=== PATIENT | female | born 1995 | race Caucasian/White ===

== ENCOUNTER 2018-12-27 12:10 | Emergency (ER) | payer OTHER ==
[2018-12-27] MEDS ORDERED: Diphtheria,Pertussis(Acell),Tetanus Vaccine 0.5 ML Syringe IM ONE (12:42)
[2018-12-27] MEDS ORDERED: Lidocaine 1% 10 ML MDV INJECT ONE (12:43)
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
[2018-12-27] MEDS ORDERED: FLU Vacc QS2019-20(6MOS+)/PF 60 MCG/0.5 ML SYRINGE IM ONE (13:00)
== END 2018-12-27 15:00 | disposition home or self-care (01) ==
LOC: JD.ED 12:10
DX: S81.021A Laceration with foreign body, right knee, initial encounter (principal); Z23 Encounter for immunization; W18.30XA Fall on same level, unspecified, initial encounter; Y93.01 Activity, walking, marching and hiking; Y92.89 Other specified places as the place of occurrence of the external cause
CPT/HCPCS: 12002; 90471; 90686; 90700; 99282; J2001; G0008

== ENCOUNTER 2019-03-15 13:06 | Emergency (ER) | payer OTHER ==
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
--- NOTE | 2019-03-15 14:26 | CT ---
Head CT Technique: Multiple axial sections through the brain were obtained. Intravenous contrast was not utilized. Comparison: No prior intracranial imaging is available. Findings: Ventricles along with basal cisterns and sulci over the convexities appear within normal limits for the patient's age. No abnormal parenchymal densities are seen. No evidence of intracranial hemorrhage. No midline shift or mass effect is seen. No acute calvarial abnormality is seen. No acute paranasal sinus findings are seen. Impression: 1. Nothing acute is appreciated on noncontrast head CT exam. Diagnostic code #1 This report was dictated in Mountain Standard Time
== END 2019-03-15 14:46 | disposition home or self-care (01) ==
LOC: JD.ED 13:06
DX: S06.0X9A Concussion with loss of consciousness of unspecified duration, initial encounter (principal); F32.9 Major depressive disorder, single episode, unspecified; E03.9 Hypothyroidism, unspecified; Z79.899 Other long term (current) drug therapy; X58.XXXA Exposure to other specified factors, initial encounter
CPT/HCPCS: 70450; 70450-26; 99282; 99284-25

== ENCOUNTER 2020-05-29 16:39 | Inpatient (IN) | payer BC ==
--- NOTE | 2020-05-29 18:19 | PCM.SN.2 ---
- Free Text/Narrative Note: 1810
--- NOTE | 2020-05-29 20:04 | PCM.SN.2 ---
- Free Text/Narrative Note: 1800 S: 24 y/o at 37 6/7 wks who presents for monitoring after mild range BP with normal repeat in clinic. Feeling well. O: VS: 105/87, 114/83, 134/82, 132/72, 127/89, 143/74, 136/90, 131/78, 130/80, 133/76, 135/77 GEN: NAD NST: Initially so much movement unable to establish baseline, eventua lly 125, moderate variability, + accelerations, no decelerations TOCO: Quiet Laboratory Tests 05/29/20 05/29/20 05/29/20 Range/Units 17:01 17:10 17:20 WBC 11.49 H (3.98-10.04) K/mm3 RBC 3.80 L (3.98-5.22) M/mm3 Hgb 11.4 (11.2-15.7) gm/dl Hct 33.9 L (34.1-44.9) % MCV 89.2 (79.4-94.8) fl MCH 30.0 (25.6-32.2) pg MCHC 33.6 (32.2-35.5) g/dl RDW Std Deviation 37.8 (36.4-46.3) fL Plt Count 339 (182-369) K/mm3 MPV 9.3 L (9.4-12.3) fl Neut % (Auto) 62.5 (34.0-71.1) % Lymph % (Auto) 26.9 (19.3-51.7) % Baker % (Auto) 6.3 (4.7-12.5) % Eos % (Auto) 3.7 (0.7-5.8) Baso % (Auto) 0.3 (0.1-1.2) % Neut # (Auto) 7.19 H (1.56-6.13) K/mm3 Lymph # (Auto) 3.09 (1.18-3.74) K/mm3 Baker # (Auto) 0.72 H (0.24-0.36) K/mm3 Eos # (Auto) 0.42 H (0.04-0.36) K/mm3 Baso # (Auto) 0.03 (0.01-0.08) K/mm3 Creatinine 0.5 L (0.55-1.02) mg/dL Est Cr Clr Drug Dosing 162.42 mL/min Estimated GFR (MDRD) > 60 (>60) mL/min AST 12 L (15-37) U/L ALT 14 (14-59) U/L Ur Random Creatinine < 13.0 L (30.0-125.0) mg/dL U Random Total Protein < 6.0 (0.0-11.8) mg/dL Protein/Creatinin Ratio TNP A/P: Labs WNL. Did have two mild range BP's, but rest WNL. Reviewed not technically 4 hours apart, but could consider staying for IOL although this might be overtreating finding. Reviewed risks/benefits. Ultimately patient declines IOL. Will return to clinic in 2 days for repeat BP check and appointment. Aware of signs which should prompt evaluation Erin Montes MD
[2020-05-29] MEDS ORDERED: Misoprostol 100 MCG Tab VAG PRN (20:19)
[2020-05-29] MEDS ORDERED: Ondansetron 4 MG/2 ML SDV IVPUSH PRN (20:19)
[2020-05-29] MEDS ORDERED: Nalbuphine 10 MG/1 ML Vial IVPUSH PRN (20:19)
[2020-05-29] MEDS ORDERED: Acetaminophen 325 MG Tab PO PRN (20:19)
[2020-05-29] MEDS ORDERED: Sodium Chloride 0.9% 10 ML Syringe FLUSH PRN (20:19)
--- NOTE | 2020-05-29 20:23 | PCM.LDHP ---
L&D History of Present Illness - General Date of Service: 05/29/20 Admit Problem/Dx: Patient Status Order with Admit Dx/Problem 05/29/20 17:05 Patient Status [ADT] Routine Admission Diagnosis/Problem Admission Diagnosis/Problem Elevated blood pressure Source of Information: Patient History Limitations: Reports: No Limitations - History of Present Illness Introduction:: Patient is a 24 y/o at 37 6/7 wks who was being seen in triage earlier today for mild range BP in clinic. Had made plan to discharge patient, but then had several additional mild range BP's. Was thus recommended to stay for IOL. Otherwise HPI as per simple note - Related Data Allergies/Adverse Reactions: Allergies Allergy/AdvReac Type Severity Reaction Status Date / Time antipyrine [From Auralgan] Allergy Other Verified 05/29/20 19:20 benzocaine [From Auralgan] Allergy Other Verified 05/29/20 19:20 cefdinir Allergy Stomach Verified 05/29/20 19:20 Upset docosanol [From Abreva] Allergy Other Verified 05/29/20 19:20 glycerin [From Auralgan] Allergy Other Verified 05/29/20 19:20 phenazopyridine Allergy Nausea Verified 05/29/20 19:20 [From Pyridium] Home Medications: Home Meds Acetaminophen [Tylenol Extra Strength] 1,000 mg PO Q4HR PRN 05/29/20 [History] Levothyroxine Sodium [Levothyroxine] 75 mcg PO DAILY 05/29/20 [History] Magnesium Oxide 400 mg PO DAILY 05/29/20 [History] Omeprazole Magnesium [Prilosec Otc] 20 mg PO DAILY 05/29/20 [History] No122/Iron/Folic Acid [ Multi Tablet] 1 each PO DAILY 05/29/20 [History] Past Medical History Psychiatric History: Reports: Depression Endocrine/Metabolic History: Reports: Hypothyroidism - Infectious Disease History Infectious Disease History: Reports: Chicken Pox - Past Surgical History HEENT Surgical History: Reports: Myringotomy w Tube(s), Oral Surgery, Tonsillectomy Social & Family History - Family History Family Medical History: No Pertinent Family History - Tobacco Use Tobacco Use Status *Q: Never Tobacco User - Caffeine Use Caffeine Use: Reports: Coffee - Alcohol Use Alcohol Use History: No - Recreational Drug Use Recreational Drug Use: No H&P Review of Systems - Review of Systems: Review Of Systems: See Below General: Reports: No Symptoms, Malaise Pulmonary: Reports: No Symptoms Cardiovascular: Reports: No Symptoms Gastrointestinal: Reports: No Symptoms Genitourinary: Reports: No Symptoms Musculoskeletal: Reports: No Symptoms Psychiatric: Reports: No Symptoms Neurological: Reports: No Symptoms L&D Exam - Exam Exam: See Below - Vital Signs Vital Signs: Last Vital Signs Temp 36.4 C 05/29/20 17:22 Pulse 95 05/29/20 17:22 Resp 18 05/29/20 17:22 BP 135/77 05/29/20 19:30 Pulse Ox 99 05/29/20 17:22 Weight: 110.223 kg - OB Specific Contraction Intensity: Irritability Movement: Active Heart Tones: Present Heart Tones per Min: 150 Heart Rate (FHR) Variability: Moderate (6-25 bmp) Presentation: Vertex - Exam General: Alert, Oriented, Cooperative Lungs: Clear to Auscultation, Normal Respiratory Effort Cardiovascular: Regular Rate, Regular Rhythm GI/Abdominal Exam: Soft, Non-Tender Genitourinary: Normal external exam Extremities: Normal Inspection, Pedal Edema Skin: Warm, Dry, Intact - Patient Data Lab Results Last 24 hrs: Laboratory Results - last 24 hr 05/29/20 05/29/20 05/29/20 Range/Units 17:01 17:10 17:20 WBC 11.49 H (3.98-10.04) K/mm3 RBC 3.80 L (3.98-5.22) M/mm3 Hgb 11.4 (11.2-15.7) gm/dl Hct 33.9 L (34.1-44.9) % MCV 89.2 (79.4-94.8) fl MCH 30.0 (25.6-32.2) pg MCHC 33.6 (32.2-35.5) g/dl RDW Std Deviation 37.8 (36.4-46.3) fL Plt Count 339 (182-369) K/mm3 MPV 9.3 L (9.4-12.3) fl Neut % (Auto) 62.5 (34.0-71.1) % Lymph % (Auto) 26.9 (19.3-51.7) % [place] % (Auto) 6.3 (4.7-12.5) % Eos % (Auto) 3.7 (0.7-5.8) Baso % (Auto) 0.3 (0.1-1.2) % Neut # (Auto) 7.19 H (1.56-6.13) K/mm3 Lymph # (Auto) 3.09 (1.18-3.74) K/mm3 [place] # (Auto) 0.72 H (0.24-0.36) K/mm3 Eos # (Auto) 0.42 H (0.04-0.36) K/mm3 Baso # (Auto) 0.03 (0.01-0.08) K/mm3 Creatinine 0.5 L (0.55-1.02) mg/dL Est Cr Clr Drug Dosing 162.42 mL/min Estimated GFR (MDRD) > 60 (>60) mL/min AST 12 L (15-37) U/L ALT 14 (14-59) U/L Ur Random Creatinine < 13.0 L (30.0-125.0) mg/dL U Random Total Protein < 6.0 (0.0-11.8) mg/dL Protein/Creatinin Ratio TNP Result Diagrams: 05/29/20 17:01 05/29/20 17:20 - Problem List (1) 37 weeks gestation of SNOMED Code(s): 50147589 ICD Code: Z3A.37 - 37 WEEKS GESTATION OF Status: Acute Current Visit: Yes (2) Gestational hypertension SNOMED Code(s): 906592446 ICD Code: O13.9 - GESTATIONAL HTN W/O SIGNIFICANT PROTEINURIA, UNSP TRIMESTER Status: Acute Current Visit: Yes Qualifiers: Trimester: third trimester Qualified Code(s): O13.3 - Gestational [-induced] hypertension without significant proteinuria, third trimester (3) Hypothyroid SNOMED Code(s): 51917062 ICD Code: E03.9 - HYPOTHYROIDISM, UNSPECIFIED Status: Acute Current Visit: Yes Problem List Initiated/Reviewed/Updated: Yes Orders Last 24hrs: Active Orders 24 hr Category Date Time Status Patient Status [ADT] Routine ADT 05/29/20 17:05 Active Communication Order [RC] ASDIRECTED Care 05/29/20 20:19 Ordered Communication Order [RC] ASDIRECTED Care 05/29/20 20:19 Ordered Communication Order [RC] ASDIRECTED Care 05/29/20 20:19 Ordered Monitoring [RC] INTERMITTENT Care 05/29/20 20:19 Ordered Non Stress Test [RC] PER UNIT ROUTINE Care 05/29/20 17:05 Active Notify Provider [RC] ASDIRECTED Care 05/29/20 20:19 Ordered Notify Provider [RC] PRN Care 05/29/20 20:19 Ordered Peripheral IV Care [RC] . DIRECTED Care 05/29/20 20:22 Ordered Up ad Ailyn [RC] ASDIRECTED Care 05/29/20 20:20 Ordered Vaginal Exam [RC] ASDIRECTED Care 05/29/20 20:19 Ordered Vital Signs [RC] ASDIRECTED Care 05/29/20 20:19 Ordered Vital Signs [RC] PER UNIT ROUTINE Care 05/29/20 17:05 Active Regular Diet [DIET] Diet 05/29/20 Dinner Active CORONAVIRUS COVID-19 OSMEL [MOLEC] Stat Lab 05/29/20 20:21 Ordered RAPID PLASMA REAGIN,RPR [CHEM] Routine Lab 05/29/20 20:19 Ordered TYPE AND SCREEN [BBK] Routine Lab 05/29/20 20:19 Ordered Acetaminophen [TylenoL] Med 05/29/20 20:19 Ordered 650 mg PO Q4H PRN Lactated Ringers [Ringers, Lactated] 1,000 ml Med 05/29/20 20:30 Ordered IV ASDIRECTED Nalbuphine [Nubain] Med 05/29/20 20:19 Ordered 10 mg IVPUSH Q2H PRN Ondansetron [Zofran] Med 05/29/20 20:19 Ordered 4 mg IVPUSH Q4H PRN Oxytocin/Lactated Ringers [Pitocin in LR 10 Units/1,000 Med 05/29/20 20:30 Ordered ML] 10 unit in 1,000 ml IV .CONTINUOUS Oxytocin/Lactated Ringers [Pitocin in LR 10 Units/1,000 Med 05/29/20 20:30 Ordered ML] 10 unit in 1,000 ml IV TITRATE Sodium Chloride 0.9% [Saline Flush] Med 05/29/20 20:19 Ordered 10 ml FLUSH ASDIRECTED PRN miSOPROStoL [Cytotec] Med 05/29/20 20:19 Ordered 25 mcg VAG Q4H PRN Electronic Heart Tones Internal [WOMSER] Per Unit Oth 05/29/20 20:19 Ordered Routine Medication Administration Instruction [OM.PC] Oth 05/29/20 20:30 Ordered ASDIRECTED PIH Panel [OM.PC] Stat Oth 05/29/20 17:05 Ordered Peripheral IV Insertion Adult [OM.PC] Routine Oth 05/29/20 20:19 Ordered Resuscitation Status Routine Resus Stat 05/29/20 17:05 Ordered Assessment/Plan Comment:: * Labs already done * GBS negative, no need for antibiotics * Cytotec for IOL, pitocin/walton/AROM when able * Pain management per patient preference * Monitor BP's closely * Anticipate
[2020-05-29] MEDS ORDERED: Oxytocin/Lactated Ringers 10 UNIT/1,000 ML BAG IV SCH ×2 (20:30)
[2020-05-29] MEDS ORDERED: Zolpidem 10 MG Tab PO PRN (20:51)
[2020-05-29] MEDS ORDERED: Misoprostol 25 MCG (1/4 of 100 MCG) Tab ONE (20:53)
[2020-05-29] MEDS: Misoprostol 25 MCG (1/4 of 100 MCG) Tab VAG PRN (21:03)
[2020-05-30] MEDS: Misoprostol 25 MCG (1/4 of 100 MCG) Tab VAG PRN ×2 (01:04→05:06)
--- NOTE | 2020-05-30 07:30 | PCM.PNLD ---
Labor Progress Note - VS & Meds Vital Signs: Last Vital Signs Temp 36.4 C 05/29/20 17:22 Pulse 95 05/29/20 17:22 Resp 18 05/29/20 17:22 BP 148/101 H 05/29/20 20:02 Pulse Ox 99 05/29/20 17:22 Active Medications: Current Medications Acetaminophen (Acetaminophen 325 Mg Tab) 650 mg PO Q4H PRN PRN Reason: Pain (Mild 1-3) and fever Lactated Ringer's (Ringers, Lactated) 1,000 mls @ 40 mls/hr IV ASDIRECTED KEVIN Oxytocin/Lactated Ringer's (Pitocin In Lr 10 Units/1,000 Ml) 10 unit in 1,000 mls @ 12 mls/hr IV TITRATE KEVIN; Protocol Oxytocin/Lactated Ringer's (Pitocin In Lr 10 Units/1,000 Ml) 10 unit in 1,000 mls @ 500 mls/hr IV .CONTINUOUS KEVIN Misoprostol (Misoprostol 25 Mcg (1/4 Of 100 Mcg) Tab) 25 mcg VAG ONETIME ONE Stop: 05/30/20 09:01 Nalbuphine HCl (Nalbuphine 10 Mg/1 Ml Vial) 10 mg IVPUSH Q2H PRN PRN Reason: Pain Ondansetron HCl (Ondansetron 4 Mg/2 Ml Sdv) 4 mg IVPUSH Q4H PRN PRN Reason: Nausea/Vomiting Sodium Chloride (Sodium Chloride 0.9% 10 Ml Syringe) 10 ml FLUSH ASDIRECTED PRN PRN Reason: Keep Vein Open Zolpidem Tartrate (Zolpidem 10 Mg Tab) 10 mg PO ONETIME PRN PRN Reason: Insomnia Last Admin: 05/30/20 00:14 Dose: 10 mg Documented by: Discontinued Medications Misoprostol (Misoprostol 100 Mcg Tab) 25 mcg VAG Q4H PRN PRN Reason: cervical ripening Misoprostol (Misoprostol 25 Mcg (1/4 Of 100 Mcg) Tab) Confirm Administered Dose 25 mcg .ROUTE .STK-MED ONE Stop: 05/29/20 20:54 Last Admin: 05/29/20 21:33 Dose: Not Given Documented by: Misoprostol (Misoprostol 25 Mcg (1/4 Of 100 Mcg) Tab) 25 mcg VAG Q4H PRN PRN Reason: cervical ripening Last Admin: 05/30/20 05:06 Dose: 25 mcg Documented by: - Uterine Contractions Uterine Monitoring Mode: External [place] Contraction Intensity: Irritability Uterine Resting Tone: Soft - Monitoring Monitor Mode: External Ultrasound Heart Rate (FHR) Baseline: 135 Heart Rate (FHR) Variability: Moderate (6-25 bmp) Accelerations: Present, 15x15 Decelerations: None Strip Review: Category I - Vaginal Exam Dilation (cm): 1 Effacement (Percent): 60 Station: -3 Cervical Position: Midposition - Labor Progress (Free Text) Labor Progress: Doing well. Received 3 doses of Cytotec overnight. Andrade bulb placed. Will plan 4th dose and then switch to pitocin afterward.
[2020-05-30] MEDS ORDERED: Misoprostol 25 MCG (1/4 of 100 MCG) Tab VAG ONE (09:00)
[2020-05-30] MEDS ORDERED: Loperamide 2 MG Cap PO ONE ×2 (09:27→09:45)
[2020-05-30] MEDS: Lactated Ringers 1,000 ML IV SCH ×4 (09:44→20:45)
[2020-05-30] MEDS ORDERED: ePHEDrine 50 MG/ML SDV IVPUSH PRN (13:36)
[2020-05-30] MEDS ORDERED: diphenhydrAMINE 50 MG/ML SDV IVPUSH PRN (13:36)
[2020-05-30] MEDS: fentaNYL 100 MCG/2 ML SDV EPIDUR PRN ×2 (15:06→20:44)
[2020-05-30] MEDS: Bupivacaine/fentaNYL/NS 100 ML Bag EPIDUR PRN ×2 (15:06→21:20)
--- NOTE | 2020-05-30 15:07 | PCM.PREANE ---
Preanesthetic Assessment - Procedure Proposed Procedure: Continuous labor epidural - Anesthesia/Transfusion/Family Hx Anesthesia History: Prior Anesthesia Without Reaction Transfusion History: No Prior Transfusion(s) - Review of Systems General: No Symptoms Pulmonary: No Symptoms Cardiovascular: No Symptoms Gastrointestinal: No Symptoms Neurological: No Symptoms Other: Reports: None - Physical Assessment Vital Signs: Last Vital Signs Temp 97.5 F 05/29/20 17:22 Pulse 95 05/29/20 17:22 Resp 18 05/29/20 17:22 BP 148/101 H 05/29/20 20:02 Pulse Ox 99 05/29/20 17:22 Height: 1.68 m Weight: 110.223 kg ASA Class: 2 Mental Status: Alert & Oriented x3 Airway Class: Mallampati = 3 Dentition: Reports: Normal Dentition Thyro-Mental Finger Breadths: 3 Mouth Opening Finger Breadths: 3 ROM/Head Extension: Full Lungs: Clear to Auscultation, Normal Respiratory Effort Cardiovascular: Regular Rate, Regular Rhythm - Lab Values: Laboratory Last Values WBC 11.49 K/mm3 (3.98-10.04) H 05/29/20 17: RBC 3.80 M/mm3 (3.98-5.22) L 05/29/20 17:01 Hgb 11.4 gm/dl (11.2-15.7) 05/29/20 17:01 Hct 33.9 % (34.1-44.9) L 05/29/20 17:01 MCV 89.2 fl (79.4-94.8) 05/29/20 17:01 MCH 30.0 pg (25.6-32.2) 05/29/20 17:01 MCHC 33.6 g/dl (32.2-35.5) 05/29/20 17:01 RDW Std Deviation 37.8 fL (36.4-46.3) 05/29/20 17:01 Plt Count 339 K/mm3 (182-369) 05/29/20 17:01 MPV 9.3 fl (9.4-12.3) L 05/29/20 17:01 Neut % (Auto) 62.5 % (34.0-71.1) 05/29/20 17: Lymph % (Auto) 26.9 % (19.3-51.7) 05/29/20 17:01 [place] % (Auto) 6.3 % (4.7-12.5) 05/29/20 17:01 Eos % (Auto) 3.7 (0.7-5.8) 05/29/20 17:01 Baso % (Auto) 0.3 % (0.1-1.2) 05/29/20 17:01 Neut # (Auto) 7.19 K/mm3 (1.56-6.13) H 05/29/20 17:01 Lymph # (Auto) 3.09 K/mm3 (1.18-3.74) 05/29/20 17:01 [place] # (Auto) 0.72 K/mm3 (0.24-0.36) H 05/29/20 17:01 Eos # (Auto) 0.42 K/mm3 (0.04-0.36) H 05/29/20 17:01 Baso # (Auto) 0.03 K/mm3 (0.01-0.08) 05/29/20 17:01 Creatinine 0.5 mg/dL (0.55-1.02) L 05/29/20 17:20 Est Cr Clr Drug Dosing 162.42 mL/min 05/29/20 17:20 Estimated GFR (MDRD) > 60 mL/min (>60) 05/29/20 17:20 AST 12 U/L (15-37) L 05/29/20 17:20 ALT 14 U/L (14-59) 05/29/20 17:20 Ur Random Creatinine < 13.0 mg/dL (30.0-125.0) L 05/29/20 17:10 U Random Total Protein < 6.0 mg/dL (0.0-11.8) 05/29/20 17:10 Protein/Creatinin Ratio TNP 05/29/20 17:10 SARS-CoV-2 RNA (OSMEL) Negative (NEGATIVE) 05/29/20 20:30 Blood Type O POSITIVE 05/29/20 20:33 Gel Antibody Screen Negative 05/29/20 20:33 - Allergies Allergies/Adverse Reactions: Allergies Allergy/AdvReac Type Severity Reaction Status Date / Time antipyrine [From Auralgan] Allergy Other Verified 05/29/20 19:20 benzocaine [From Auralgan] Allergy Other Verified 05/29/20 19:20 cefdinir Allergy Stomach Verified 05/29/20 19:20 Upset docosanol [From Abreva] Allergy Other Verified 05/29/20 19:20 glycerin [From Auralgan] Allergy Other Verified 05/29/20 19:20 phenazopyridine Allergy Nausea Verified 05/29/20 19:20 [From Pyridium] - Acknowledgements Anesthesia Type Planned: Epidural Pt an Appropriate Candidate for the Planned Anesthesia: Yes Alternatives and Risks of Anesthesia Discussed w Pt/Guardian: Yes Pt/Guardian Understands and Agrees with Anesthesia Plan: Yes PreAnesthesia Questionnaire - Past Health History Medical/Surgical History: Denies Medical/Surgical History HEENT History: Reports: Other (See Below) Other HEENT History: Wears glasses [employer] History: Reports: Neurological History: Reports: Headaches, Chronic Psychiatric History: Reports: Anxiety, Depression Endocrine/Metabolic History: Reports: Hypothyroidism, Obesity/BMI 30+ - Infectious Disease History Infectious Disease History: Reports: Chicken Pox, Novel Coronavirus - Past Surgical History HEENT Surgical History: Reports: Oral Surgery, Tonsillectomy - SUBSTANCE USE Tobacco Use Status *Q: Never Tobacco User Tobacco Use Within Last Twelve Months: No Recreational Drug Use History: No - HOME MEDS Home Medications: Home Meds Acetaminophen [Tylenol Extra Strength] 1,000 mg PO Q4HR PRN 05/29/20 [History] Levothyroxine Sodium [Levothyroxine] 75 mcg PO DAILY 05/29/20 [History] Magnesium Oxide 400 mg PO DAILY 05/29/20 [History] Omeprazole Magnesium [Prilosec Otc] 20 mg PO DAILY 05/29/20 [History] No122/Iron/Folic Acid [ Multi Tablet] 1 each PO DAILY 05/29/20 [History] - CURRENT (IN HOUSE) MEDS Current Meds: Current Medications Acetaminophen (Acetaminophen 325 Mg Tab) 650 mg PO Q4H PRN PRN Reason: Pain (Mild 1-3) and fever Diphenhydramine HCl (Diphenhydramine 50 Mg/Ml Sdv) 25 mg IVPUSH Q6H PRN PRN Reason: pruritis Ephedrine Sulfate (Ephedrine 50 Mg/Ml Sdv) 5 mg IVPUSH ASDIRECTED PRN PRN Reason: Hypotension Fentanyl (Fentanyl 100 Mcg/2 Ml Sdv) 100 mcg EPIDUR Q3H PRN PRN Reason: Pain Fentanyl/Bupivacaine HCl (Bupivacaine/Fentanyl/Ns 100 Ml Bag) 100 ml EPIDUR ASDIRECTED PRN PRN Reason: Pain Lactated Ringer's (Ringers, Lactated) 1,000 mls @ 40 mls/hr IV ASDIRECTED KEVIN Last Admin: 05/30/20 14:43 Dose: 40 mls/hr Documented by: Oxytocin/Lactated Ringer's (Pitocin In Lr 10 Units/1,000 Ml) 10 unit in 1,000 mls @ 12 mls/hr IV TITRATE KEVIN; Protocol Last Titration: 05/30/20 14:20 Dose: 12 munits/min, 72 mls/hr Documented by: Oxytocin/Lactated Ringer's (Pitocin In Lr 10 Units/1,000 Ml) 10 unit in 1,000 mls @ 500 mls/hr IV .CONTINUOUS KEVIN Nalbuphine HCl (Nalbuphine 10 Mg/1 Ml Vial) 10 mg IVPUSH Q2H PRN PRN Reason: Pain Ondansetron HCl (Ondansetron 4 Mg/2 Ml Sdv) 4 mg IVPUSH Q4H PRN PRN Reason: Nausea/Vomiting Sodium Chloride (Sodium Chloride 0.9% 10 Ml Syringe) 10 ml FLUSH ASDIRECTED PRN PRN Reason: Keep Vein Open Zolpidem Tartrate (Zolpidem 10 Mg Tab) 10 mg PO ONETIME PRN PRN Reason: Insomnia Last Admin: 05/30/20 00:14 Dose: 10 mg Documented by: Discontinued Medications Loperamide HCl (Loperamide 2 Mg Cap) 4 mg PO ONETIME ONE Stop: 05/30/20 09:46 Last Admin: 05/30/20 09:44 Dose: 4 mg Documented by: Misoprostol (Misoprostol 100 Mcg Tab) 25 mcg VAG Q4H PRN PRN Reason: cervical ripening Misoprostol (Misoprostol 25 Mcg (1/4 Of 100 Mcg) Tab) Confirm Administered Dose 25 mcg .ROUTE .STK-MED ONE Stop: 05/29/20 20:54 Last Admin: 05/29/20 21:33 Dose: Not Given Documented by: Misoprostol (Misoprostol 25 Mcg (1/4 Of 100 Mcg) Tab) 25 mcg VAG Q4H PRN PRN Reason: cervical ripening Last Admin: 05/30/20 05:06 Dose: 25 mcg Documented by: Misoprostol (Misoprostol 25 Mcg (1/4 Of 100 Mcg) Tab) 25 mcg VAG ONETIME ONE Stop: 05/30/20 09:01 Last Admin: 05/30/20 09:30 Dose: Not Given Documented by:
--- NOTE | 2020-05-30 17:11 | PCM.PNLD ---
Labor Progress Note - VS & Meds Vital Signs: Last Vital Signs Temp 36.4 C 05/29/20 17:22 Pulse 95 05/29/20 17:22 Resp 18 05/29/20 17:22 BP 148/101 H 05/29/20 20:02 Pulse Ox 99 05/29/20 17:22 Active Medications: Current Medications Acetaminophen (Acetaminophen 325 Mg Tab) 650 mg PO Q4H PRN PRN Reason: Pain (Mild 1-3) and fever Diphenhydramine HCl (Diphenhydramine 50 Mg/Ml Sdv) 25 mg IVPUSH Q6H PRN PRN Reason: pruritis Ephedrine Sulfate (Ephedrine 50 Mg/Ml Sdv) 5 mg IVPUSH ASDIRECTED PRN PRN Reason: Hypotension Fentanyl (Fentanyl 100 Mcg/2 Ml Sdv) 100 mcg EPIDUR Q3H PRN PRN Reason: Pain Last Admin: 05/30/20 15:06 Dose: 100 mcg Documented by: Fentanyl/Bupivacaine HCl (Bupivacaine/Fentanyl/Ns 100 Ml Bag) 100 ml EPIDUR ASDIRECTED PRN PRN Reason: Pain Last Admin: 05/30/20 15:06 Dose: 100 ml Documented by: Lactated Ringer's (Ringers, Lactated) 1,000 mls @ 40 mls/hr IV ASDIRECTED KEVIN Last Admin: 05/30/20 16:03 Dose: 40 mls/hr Documented by: Oxytocin/Lactated Ringer's (Pitocin In Lr 10 Units/1,000 Ml) 10 unit in 1,000 mls @ 12 mls/hr IV TITRATE KEVIN; Protocol Last Titration: 05/30/20 17:00 Dose: 10 munits/min, 60 mls/hr Documented by: Oxytocin/Lactated Ringer's (Pitocin In Lr 10 Units/1,000 Ml) 10 unit in 1,000 mls @ 500 mls/hr IV .CONTINUOUS KEVIN Nalbuphine HCl (Nalbuphine 10 Mg/1 Ml Vial) 10 mg IVPUSH Q2H PRN PRN Reason: Pain Ondansetron HCl (Ondansetron 4 Mg/2 Ml Sdv) 4 mg IVPUSH Q4H PRN PRN Reason: Nausea/Vomiting Sodium Chloride (Sodium Chloride 0.9% 10 Ml Syringe) 10 ml FLUSH ASDIRECTED PRN PRN Reason: Keep Vein Open Zolpidem Tartrate (Zolpidem 10 Mg Tab) 10 mg PO ONETIME PRN PRN Reason: Insomnia Last Admin: 05/30/20 00:14 Dose: 10 mg Documented by: Discontinued Medications Loperamide HCl (Loperamide 2 Mg Cap) 4 mg PO ONETIME ONE Stop: 05/30/20 09:46 Last Admin: 05/30/20 09:44 Dose: 4 mg Documented by: Misoprostol (Misoprostol 100 Mcg Tab) 25 mcg VAG Q4H PRN PRN Reason: cervical ripening Misoprostol (Misoprostol 25 Mcg (1/4 Of 100 Mcg) Tab) Confirm Administered Dose 25 mcg .ROUTE .STK-MED ONE Stop: 05/29/20 20:54 Last Admin: 05/29/20 21:33 Dose: Not Given Documented by: Misoprostol (Misoprostol 25 Mcg (1/4 Of 100 Mcg) Tab) 25 mcg VAG Q4H PRN PRN Reason: cervical ripening Last Admin: 05/30/20 05:06 Dose: 25 mcg Documented by: Misoprostol (Misoprostol 25 Mcg (1/4 Of 100 Mcg) Tab) 25 mcg VAG ONETIME ONE Stop: 05/30/20 09:01 Last Admin: 05/30/20 09:30 Dose: Not Given Documented by: - Uterine Contractions Uterine Monitoring Mode: External [place] Contraction Intensity: Mild to Moderate Uterine Resting Tone: Soft - Monitoring Monitor Mode: External Ultrasound Heart Rate (FHR) Baseline: 145 Heart Rate (FHR) Variability: Moderate (6-25 bmp) Accelerations: Present, 15x15 Decelerations: None Strip Review: Category I - Vaginal Exam Dilation (cm): 4-5 Effacement (Percent): 70 Station: -2 Cervical Position: Midposition - Labor Progress (Free Text) Labor Progress: Doing well. Comfortable with epidural. Pitocin just moved down from 14 to 10. AROM performed with release of blood tinged fluid
--- NOTE | 2020-05-30 20:25 | PCM.PNLD ---
Labor Progress Note - VS & Meds Vital Signs: Last Vital Signs Temp 36.4 C 05/29/20 17:22 Pulse 95 05/29/20 17:22 Resp 18 05/29/20 17:22 BP 148/101 H 05/29/20 20:02 Pulse Ox 99 05/29/20 17:22 Active Medications: Current Medications Acetaminophen (Acetaminophen 325 Mg Tab) 650 mg PO Q4H PRN PRN Reason: Pain (Mild 1-3) and fever Last Admin: 05/30/20 17:10 Dose: 650 mg Documented by: Diphenhydramine HCl (Diphenhydramine 50 Mg/Ml Sdv) 25 mg IVPUSH Q6H PRN PRN Reason: pruritis Ephedrine Sulfate (Ephedrine 50 Mg/Ml Sdv) 5 mg IVPUSH ASDIRECTED PRN PRN Reason: Hypotension Fentanyl (Fentanyl 100 Mcg/2 Ml Sdv) 100 mcg EPIDUR Q3H PRN PRN Reason: Pain Last Admin: 05/30/20 15:06 Dose: 100 mcg Documented by: Fentanyl/Bupivacaine HCl (Bupivacaine/Fentanyl/Ns 100 Ml Bag) 100 ml EPIDUR ASDIRECTED PRN PRN Reason: Pain Last Admin: 05/30/20 15:06 Dose: 100 ml Documented by: Lactated Ringer's (Ringers, Lactated) 1,000 mls @ 40 mls/hr IV ASDIRECTED KEVIN Last Admin: 05/30/20 16:03 Dose: 40 mls/hr Documented by: Oxytocin/Lactated Ringer's (Pitocin In Lr 10 Units/1,000 Ml) 10 unit in 1,000 mls @ 12 mls/hr IV TITRATE KEVIN; Protocol Last Titration: 05/30/20 17:20 Dose: 8 munits/min, 48 mls/hr Documented by: Oxytocin/Lactated Ringer's (Pitocin In Lr 10 Units/1,000 Ml) 10 unit in 1,000 mls @ 500 mls/hr IV .CONTINUOUS KEVIN Nalbuphine HCl (Nalbuphine 10 Mg/1 Ml Vial) 10 mg IVPUSH Q2H PRN PRN Reason: Pain Ondansetron HCl (Ondansetron 4 Mg/2 Ml Sdv) 4 mg IVPUSH Q4H PRN PRN Reason: Nausea/Vomiting Sodium Chloride (Sodium Chloride 0.9% 10 Ml Syringe) 10 ml FLUSH ASDIRECTED PRN PRN Reason: Keep Vein Open Zolpidem Tartrate (Zolpidem 10 Mg Tab) 10 mg PO ONETIME PRN PRN Reason: Insomnia Last Admin: 05/30/20 00:14 Dose: 10 mg Documented by: Discontinued Medications Loperamide HCl (Loperamide 2 Mg Cap) 4 mg PO ONETIME ONE Stop: 05/30/20 09:46 Last Admin: 05/30/20 09:44 Dose: 4 mg Documented by: Misoprostol (Misoprostol 100 Mcg Tab) 25 mcg VAG Q4H PRN PRN Reason: cervical ripening Misoprostol (Misoprostol 25 Mcg (1/4 Of 100 Mcg) Tab) Confirm Administered Dose 25 mcg .ROUTE .STK-MED ONE Stop: 05/29/20 20:54 Last Admin: 05/29/20 21:33 Dose: Not Given Documented by: Misoprostol (Misoprostol 25 Mcg (1/4 Of 100 Mcg) Tab) 25 mcg VAG Q4H PRN PRN Reason: cervical ripening Last Admin: 05/30/20 05:06 Dose: 25 mcg Documented by: Misoprostol (Misoprostol 25 Mcg (1/4 Of 100 Mcg) Tab) 25 mcg VAG ONETIME ONE Stop: 05/30/20 09:01 Last Admin: 05/30/20 09:30 Dose: Not Given Documented by: - Uterine Contractions Uterine Monitoring Mode: External [place] Contraction Intensity: Mild to Moderate Uterine Resting Tone: Soft - Monitoring Monitor Mode: External Ultrasound Heart Rate (FHR) Baseline: 145 Heart Rate (FHR) Variability: Moderate (6-25 bmp) Accelerations: Present, 15x15 Decelerations: None Strip Review: Category I - Vaginal Exam Dilation (cm): 5 Effacement (Percent): 70 Station: -2 Cervical Position: Midposition - Labor Progress (Free Text) Labor Progress: Pitocin at 8. Difficult to appreciate contractions. A lot of almost fibrillations. Reviewed with family desire to place IUPC. Reviewed risks/benefits and they agree. Contraction pattern still irregular. Will try to go up, but if not able to get into normal pattern will stop and do washout and then restart.
[2020-05-31] MEDS ORDERED: Lidocaine 1.5% with EPINEPHrine 1:200,000 5 ML Amp ONE (04:00)
[2020-05-31] MEDS ORDERED: Ibuprofen 600 MG Tab ONE (04:50)
[2020-05-31] MEDS ORDERED: Witch Hazel Medicated Pads 40/Jar TOP PRN (07:15)
[2020-05-31] MEDS ORDERED: Benzocaine/Menthol 20%-0.5% Spray 56 GM Canister TOP PRN (07:15)
--- NOTE | 2020-05-31 07:15 | PCM.DEL ---
L & D Note - General Info Date of Service: 05/31/20 - Delivery Note Labor: Induced by ARM, Induced by Oxytocin Cervical Ripening Method: Balloon Device, Misoprostil Delivery Outcome: Livebirth Infant Delivery Method: Spontaneous Vaginal Delivery-Single Delivery Mode: Spontaneous Presentation: Right Occiput Posterior (ROP) Nuchal Cord: None Anesthesia Type: Epidural Amniotic Fluid Description: Clear Episiotomy Type: None Laceration: 2nd Degree, Perineal Suture type: Vicryl Placenta: Intact, Spontaneous Cord: 3 Vessels Estimated Blood Loss: 100 Resuscitation Needed: Yes [place]: Bulb Syringe, Stimulated, Warmed, [place] Used, Warmer Used Delivery Comments (Free Text/Narrative):: Patient found to be complete and began pushing. With maternal pushing effort head delivered from ROP presentation. No nuchal cord present. With gen tle downward traction the shoulders and body delivered. placed on maternal abdomen. Cord clamped and cut. Segment obtained for cord gas. Cord blood collected. Placenta allowed time to separate and expelled intact. Inspection of perineum showed 2nd degree laceration repaired with a 2-0 Vicryl in the typical fashion. - General Info Date of Service: 05/31/20 - Patient Data Vitals - Most Recent: Last Vital Signs Temp 37.0 C 05/31/20 05:28 Pulse 101 H 05/31/20 05:28 Resp 16 05/31/20 05:28 BP 145/85 H 05/31/20 05:28 Pulse Ox 99 05/31/20 05:28 Weight - Most Recent: 110.223 kg I&O - Last 24 Hours: Intake & Output 05/30/20 05/31/20 05/31/20 22:59 06:59 14:59 Intake Total 240 5300 Output Total 1300 814 Balance -1060 4486 - Problem List & Annotations (1) 37 weeks gestation of SNOMED Code(s): 83028271 Code(s): Z3A.37 - 37 WEEKS GESTATION OF Status: Acute Current Visit: Yes (2) Gestational hypertension SNOMED Code(s): 257459894 Code(s): O13.9 - GESTATIONAL HTN W/O SIGNIFICANT PROTEINURIA, UNSP TRIMESTER Status: Acute Current Visit: Yes Qualifiers: Trimester: third trimester Qualified Code(s): O13.3 - Gestational [-induced] hypertension without significant proteinuria, third trimester (3) Hypothyroid SNOMED Code(s): 94811914 Code(s): E03.9 - HYPOTHYROIDISM, UNSPECIFIED Status: Acute Current Visit: Yes (4) Vaginal delivery SNOMED Code(s): 411450648 Code(s): O80 - ENCOUNTER FOR FULL-TERM UNCOMPLICATED DELIVERY Status: Acute Current Visit: Yes - Problem List Review Problem List Initiated/Reviewed/Updated: Yes - My Orders Last 24 Hours: My Active Orders 05/31/20 07:08 Patient Status Manage Transfer [TRANSFER] Routine - Assessment Assessment:: PPD#0 - Plan Plan:: * Routine cares * Monitor BP's closely * Encourage breast feeding * Discharge home in 1-2 days
--- NOTE | 2020-05-31 07:39 | PCM48HPAN ---
Post Anesthesia Note - EVALUATION WITHIN 48HRS OF ANESTHETIC Vital Signs in Normal Range: Yes Patient Participated in Evaluation: Yes Respiratory Function Stable: Yes Airway Patent: Yes Cardiovascular Function Stable: Yes Hydration Status Stable: Yes Pain Control Satisfactory: Yes Nausea and Vomiting Control Satisfactory: Yes Mental Status Recovered: Yes Vital Signs: Last Vital Signs Temp 98.6 F 05/31/20 05:28 Pulse 101 H 05/31/20 05:28 Resp 16 05/31/20 05:28 BP 145/85 H 05/31/20 05:28 Pulse Ox 99 05/31/20 05:28 - COMMENTS/OBSERVATIONS Free Text/Narrative:: no complaints
[2020-05-31] MEDS: Levothyroxine 75 MCG Tab PO SCH (09:36)
[2020-05-31] MEDS: Docusate Sodium 100 MG Cap PO PRN ×2 (09:36→22:04)
[2020-05-31] MEDS: Acetaminophen 325 MG Tab PO PRN ×2 (09:42→19:24)
[2020-05-31] MEDS: Ibuprofen 600 MG Tab PO PRN ×2 (14:06→22:03)
[2020-06-01] MEDS: Acetaminophen 325 MG Tab PO PRN ×4 (04:20→22:57)
[2020-06-01] MEDS: Ibuprofen 600 MG Tab PO PRN ×3 (05:29→18:16)
--- NOTE | 2020-06-01 07:21 | PCM.PNPP ---
- General Info Date of Service: 06/01/20 Functional Status: Reports: Pain Controlled, Tolerating Diet, Ambulating, Urinating - Review of Systems General: Reports: No Symptoms Pulmonary: Reports: No Symptoms Cardiovascular: Reports: No Symptoms Gastrointestinal: Reports: No Symptoms Genitourinary: Reports: No Symptoms Musculoskeletal: Reports: No Symptoms Neurological: Reports: No Symptoms - Patient Data Vital Signs - Most Recent: Last Vital Signs Temp 36.1 C 06/01/20 05:30 Pulse 90 06/01/20 05:30 Resp 18 05/31/20 20:47 BP 133/80 06/01/20 05:30 Pulse Ox 99 06/01/20 05:30 Weight - Most Recent: 110.223 kg Lab Results - Last 24 Hours: Laboratory Results - last 24 hr 05/31/20 05/31/20 Range/Units 21:06 21:06 WBC 16.82 H (3.98-10.04) K/mm3 RBC 3.35 L (3.98-5.22) M/mm3 Hgb 10.0 L (11.2-15.7) gm/dl Hct 30.4 L (34.1-44.9) % MCV 90.7 (79.4-94.8) fl MCH 29.9 (25.6-32.2) pg MCHC 32.9 (32.2-35.5) g/dl RDW Std Deviation 38.7 (36.4-46.3) fL Plt Count 277 (182-369) K/mm3 MPV 9.6 (9.4-12.3) fl Neut % (Auto) 69.6 (34.0-71.1) % Lymph % (Auto) 20.6 (19.3-51.7) % [place] % (Auto) 5.9 (4.7-12.5) % Eos % (Auto) 3.1 (0.7-5.8) Baso % (Auto) 0.4 (0.1-1.2) % Neut # (Auto) 11.69 H (1.56-6.13) K/mm3 Lymph # (Auto) 3.47 (1.18-3.74) K/mm3 [place] # (Auto) 1.00 H (0.24-0.36) K/mm3 Eos # (Auto) 0.52 H (0.04-0.36) K/mm3 Baso # (Auto) 0.07 (0.01-0.08) K/mm3 Creatinine 0.6 (0.55-1.02) mg/dL Est Cr Clr Drug Dosing 135.35 mL/min Estimated GFR (MDRD) > 60 (>60) mL/min AST 25 (15-37) U/L ALT 17 (14-59) U/L Med Orders - Current: Current Medications Acetaminophen (Acetaminophen 325 Mg Tab) 650 mg PO Q4H PRN PRN Reason: mild pain or fever Last Admin: 06/01/20 04:20 Dose: 650 mg Documented by: Docusate Sodium (Docusate Sodium 100 Mg Cap) 100 mg PO BID PRN PRN Reason: Constipation Last Admin: 05/31/20 22:04 Dose: 100 mg Documented by: Ibuprofen (Ibuprofen 600 Mg Tab) 600 mg PO Q6H PRN PRN Reason: Mild pain or fever Last Admin: 06/01/20 05:29 Dose: 600 mg Documented by: Levothyroxine Sodium (Levothyroxine 75 Mcg Tab) 75 mcg PO DAILY KEVIN Last Admin: 05/31/20 09:36 Dose: 75 mcg Documented by: [place] ([place] Medicated Pads 40/Jar) 1 pad TOP ASDIRECTED PRN PRN Reason: Perineal Comfort Measure Discontinued Medications Acetaminophen (Acetaminophen 325 Mg Tab) 650 mg PO Q4H PRN PRN Reason: Pain (Mild 1-3) and fever Last Admin: 05/30/20 17:10 Dose: 650 mg Documented by: Benzocaine/Menthol (Benzocaine/Menthol 20%-0.5% [place] 56 Gm Canister) 0 gm TOP ASDIRECTED PRN PRN Reason: Perineal Comfort Measure Diphenhydramine HCl (Diphenhydramine 50 Mg/Ml Sdv) 25 mg IVPUSH Q6H PRN PRN Reason: pruritis Last Admin: 05/30/20 20:46 Dose: 25 mg Documented by: Ephedrine Sulfate (Ephedrine 50 Mg/Ml Sdv) 5 mg IVPUSH ASDIRECTED PRN PRN Reason: Hypotension Fentanyl (Fentanyl 100 Mcg/2 Ml Sdv) 100 mcg EPIDUR Q3H PRN PRN Reason: Pain Last Admin: 05/30/20 20:44 Dose: 100 mcg Documented by: Fentanyl/Bupivacaine HCl (Bupivacaine/Fentanyl/Ns 100 Ml Bag) 100 ml EPIDUR ASDIRECTED PRN PRN Reason: Pain Last Admin: 05/30/20 21:20 Dose: 100 ml Documented by: Lactated Ringer's (Ringers, Lactated) 1,000 mls @ 40 mls/hr IV ASDIRECTED KEVIN Last Admin: 05/30/20 20:45 Dose: 40 mls/hr Documented by: Oxytocin/Lactated Ringer's (Pitocin In Lr 10 Units/1,000 Ml) 10 unit in 1,000 mls @ 12 mls/hr IV TITRATE KEVIN; Protocol Last Titration: 05/30/20 23:25 Dose: 2 munits/min, 12 mls/hr Documented by: Oxytocin/Lactated Ringer's (Pitocin In Lr 10 Units/1,000 Ml) 10 unit in 1,000 mls @ 500 mls/hr IV .CONTINUOUS KEVIN Ibuprofen (Ibuprofen 600 Mg Tab) 600 mg .ROUTE .STK-MED ONE Stop: 05/31/20 04:51 Loperamide HCl (Loperamide 2 Mg Cap) 4 mg PO ONETIME ONE Stop: 05/30/20 09:46 Last Admin: 05/30/20 09:44 Dose: 4 mg Documented by: Misoprostol (Misoprostol 100 Mcg Tab) 25 mcg VAG Q4H PRN PRN Reason: cervical ripening Misoprostol (Misoprostol 25 Mcg (1/4 Of 100 Mcg) Tab) Confirm Administered Dose 25 mcg .ROUTE .STK-MED ONE Stop: 05/29/20 20:54 Last Admin: 05/29/20 21:33 Dose: Not Given Documented by: Misoprostol (Misoprostol 25 Mcg (1/4 Of 100 Mcg) Tab) 25 mcg VAG Q4H PRN PRN Reason: cervical ripening Last Admin: 05/30/20 05:06 Dose: 25 mcg Documented by: Misoprostol (Misoprostol 25 Mcg (1/4 Of 100 Mcg) Tab) 25 mcg VAG ONETIME ONE Stop: 05/30/20 09:01 Last Admin: 05/30/20 09:30 Dose: Not Given Documented by: Nalbuphine HCl (Nalbuphine 10 Mg/1 Ml Vial) 10 mg IVPUSH Q2H PRN PRN Reason: Pain Ondansetron HCl (Ondansetron 4 Mg/2 Ml Sdv) 4 mg IVPUSH Q4H PRN PRN Reason: Nausea/Vomiting Sodium Chloride (Sodium Chloride 0.9% 10 Ml Syringe) 10 ml FLUSH ASDIRECTED PRN PRN Reason: Keep Vein Open Zolpidem Tartrate (Zolpidem 10 Mg Tab) 10 mg PO ONETIME PRN PRN Reason: Insomnia Last Admin: 05/30/20 00:14 Dose: 10 mg Documented by: - Infant Interaction Disposition, : in Room with Family Infant Interaction: Holding Feeding: Attempted ; Nursed Fair/Poor Support Person: - Recovery Exam Fundal Tone: Firm Fundal Level: 1 Fingerbreadths Below Umbilicus Lochia Amount: Small Lochia Color: Rubra/Red Perineum Description: Intact, Minimal Bruising/Swelling Episiotomy/Laceration: Approximated Bladder Status: Voiding Urinary Elimination: Voided - Exam General: Alert, Oriented, Cooperative GI/Abdominal Exam: Soft, Non-Tender Extremities: Normal Inspection - Problem List & Annotations (1) 37 weeks gestation of SNOMED Code(s): 91376431 Code(s): Z3A.37 - 37 WEEKS GESTATION OF Status: Acute Current Visit: Yes (2) Gestational hypertension SNOMED Code(s): 125887060 Code(s): O13.9 - GESTATIONAL HTN W/O SIGNIFICANT PROTEINURIA, UNSP TRIMESTER Status: Acute Current Visit: Yes Qualifiers: Trimester: third trimester Qualified Code(s): O13.3 - Gestational [-induced] hypertension without significant proteinuria, third trimester (3) Hypothyroid SNOMED Code(s): 54293646 Code(s): E03.9 - HYPOTHYROIDISM, UNSPECIFIED Status: Acute Current Visit: Yes (4) Vaginal delivery SNOMED Code(s): 916662049 Code(s): O80 - ENCOUNTER FOR FULL-TERM UNCOMPLICATED DELIVERY Status: Acute Current Visit: Yes - Problem List Review Problem List Initiated/Reviewed/Updated: Yes - My Orders Last 24 Hours: My Active Orders 05/31/20 Breakfast Regular Diet [DIET] 05/31/20 07:15 Acetaminophen [TylenoL] 650 mg PO Q4H PRN Docusate Sodium [Colace] 100 mg PO BID PRN Ibuprofen [Motrin] 600 mg PO Q6H PRN witch Kizzy [Tucks] 1 pad TOP ASDIRECTED PRN Heat Therapy [OM.PC] PRN 05/31/20 07:15 Activity as Tolerated [RC] PER UNIT ROUTINE Up ad Ailyn [RC] ASDIRECTED Vital Signs [RC] ,,, Assess Lochia [WOMSER] Per Unit Routine Assess Uterine Involution [WOMSER] Per Unit Routine Breast Pump [WOMSER] Per Unit Routine Perineal Care [OM.PC] Per Unit Routine Peripheral IV Discontinue [OM.PC] Routine Sitz Bath [OM.PC] Per Unit Routine 05/31/20 09:00 Levothyroxine 75 mcg PO DAILY 06/01/20 07:15 Heat Therapy [OM.PC] PRN - Assessment Assessment:: PPD#1 - Plan Plan:: * Routine cares * Monitor BP's closely, have been normal to mild range * Encourage breast feeding * Discharge home tomorrow
[2020-06-01] MEDS: Levothyroxine 75 MCG Tab PO SCH (09:15)
[2020-06-01] MEDS: Docusate Sodium 100 MG Cap PO PRN ×2 (09:15→23:00)
[2020-06-02] MEDS: Ibuprofen 600 MG Tab PO PRN (01:43)
--- NOTE | 2020-06-02 08:10 | PCM.DCSUM1 ---
Discharge Summary - Discharge Data Discharge Date: 06/02/20 Discharge Disposition: Home, Self-Care 01 Condition: Good - Referral to Home Health Primary Care Physician: Erin Montes MD - Discharge Diagnosis/Problem(s) (1) 37 weeks gestation of SNOMED Code(s): 73442426 ICD Code: Z3A.37 - 37 WEEKS GESTATION OF Status: Acute Current Visit: Yes (2) Gestational hypertension SNOMED Code(s): 186949017 ICD Code: O13.9 - GESTATIONAL HTN W/O SIGNIFICANT PROTEINURIA, UNSP TRIMESTER Status: Acute Current Visit: Yes Qualifiers: Trimester: third trimester Qualified Code(s): O13.3 - Gestational [-induced] hypertension without significant proteinuria, third trimester (3) Hypothyroid SNOMED Code(s): 39482463 ICD Code: E03.9 - HYPOTHYROIDISM, UNSPECIFIED Status: Acute Current Visit: Yes (4) Vaginal delivery SNOMED Code(s): 348716189 ICD Code: O80 - ENCOUNTER FOR FULL-TERM UNCOMPLICATED DELIVERY Status: Acute Current Visit: Yes - Patient Summary/Data Complications: None Consults: None Recommended Follow-up Testing/Procedures: Follow up in 1 week for BP check and 3 weeks for check Hospital Course: 24 y/o at 37 6/7 wks presented for further evaluation after mild range BP in clinic. Was found to have intermittently mild range BP's on L&D and normal labs. Reviewed diagnosis of gestational HTN and recommended IOL. She agreed. IOL done with cytotec, wal[place] bulb, and eventually Pitocin and AROM. She progressed well and underwent an uncomplicated . see delivery note. did well and was discharged home on PPD#2 - Patient Instructions Diet: Regular Diet as Tolerated Activity: As Tolerated Activity, Other: Pelvic rest for 6 weeks Driving: May Drive Today Showering/Bathing: May Shower Showering/Bathing, Other: May Bathe Notify Provider of: Fever, Increased Pain, Swelling and Redness, Drainage, Nausea and/or Vomiting - Discharge Plan *PRESCRIPTION DRUG MONITORING PROGRAM REVIEWED*: No *COPY OF PRESCRIPTION DRUG MONITORING REPORT IN PATIENT INDY: No Home Medications: Home Meds Acetaminophen [Tylenol Extra Strength] 1,000 mg PO Q4HR PRN 05/29/20 [History] Levothyroxine Sodium [Levothyroxine] 75 mcg PO DAILY 05/29/20 [History] No122/Iron/Folic Acid [ Multi Tablet] 1 each PO DAILY 05/29/20 [History] Docusate Sodium [Colace] 100 mg PO BID PRN cap 06/02/20 [Rx] Ibuprofen [Motrin] 600 mg PO Q6H PRN tablet 06/02/20 [Rx] Patient Handouts: Care of a Perineal Tear, Care After Vaginal Delivery Referrals: Erin Montes MD [Primary Care Provider] - (1 weeks for RN only BP check 3 weeks for check ) - Discharge Summary/Plan Comment DC Time >30 min.: No - Patient Data Vitals - Most Recent: Last Vital Signs Temp 36.6 C 06/02/20 03:54 Pulse 88 06/02/20 03:54 Resp 16 06/02/20 03:54 BP 130/81 06/02/20 03:54 Pulse Ox 98 06/02/20 03:54 Weight - Most Recent: 110.223 kg Med Orders - Current: Current Medications Acetaminophen (Acetaminophen 325 Mg Tab) 650 mg PO Q4H PRN PRN Reason: mild pain or fever Last Admin: 06/01/20 22:57 Dose: 650 mg Documented by: Docusate Sodium (Docusate Sodium 100 Mg Cap) 100 mg PO BID PRN PRN Reason: Constipation Last Admin: 06/01/20 23:00 Dose: 100 mg Documented by: Ibuprofen (Ibuprofen 600 Mg Tab) 600 mg PO Q6H PRN PRN Reason: Mild pain or fever Last Admin: 06/02/20 01:43 Dose: 600 mg Documented by: Levothyroxine Sodium (Levothyroxine 75 Mcg Tab) 75 mcg PO DAILY KEVIN Last Admin: 06/01/20 09:15 Dose: Not Given Documented by: lCark [place] ([place] Medicated Pads 40/Jar) 1 pad TOP ASDIRECTED PRN PRN Reason: Perineal Comfort Measure Discontinued Medications Acetaminophen (Acetaminophen 325 Mg Tab) 650 mg PO Q4H PRN PRN Reason: Pain (Mild 1-3) and fever Last Admin: 05/30/20 17:10 Dose: 650 mg Documented by: Benzocaine/Menthol (Benzocaine/Menthol 20%-0.5% [place] 56 Gm Canister) 0 gm TOP ASDIRECTED PRN PRN Reason: Perineal Comfort Measure Diphenhydramine HCl (Diphenhydramine 50 Mg/Ml Sdv) 25 mg IVPUSH Q6H PRN PRN Reason: pruritis Last Admin: 05/30/20 20:46 Dose: 25 mg Documented by: Ephedrine Sulfate (Ephedrine 50 Mg/Ml Sdv) 5 mg IVPUSH ASDIRECTED PRN PRN Reason: Hypotension Fentanyl (Fentanyl 100 Mcg/2 Ml Sdv) 100 mcg EPIDUR Q3H PRN PRN Reason: Pain Last Admin: 05/30/20 20:44 Dose: 100 mcg Documented by: Fentanyl/Bupivacaine HCl (Bupivacaine/Fentanyl/Ns 100 Ml Bag) 100 ml EPIDUR ASDIRECTED PRN PRN Reason: Pain Last Admin: 05/30/20 21:20 Dose: 100 ml Documented by: Lactated Ringer's (Ringers, Lactated) 1,000 mls @ 40 mls/hr IV ASDIRECTED KEVIN Last Admin: 05/30/20 20:45 Dose: 40 mls/hr Documented by: Oxytocin/Lactated Ringer's (Pitocin In Lr 10 Units/1,000 Ml) 10 unit in 1,000 mls @ 12 mls/hr IV TITRATE KEVIN; Protocol Last Titration: 05/30/20 23:25 Dose: 2 munits/min, 12 mls/hr Documented by: Oxytocin/Lactated Ringer's (Pitocin In Lr 10 Units/1,000 Ml) 10 unit in 1,000 mls @ 500 mls/hr IV .CONTINUOUS KEVIN Ibuprofen (Ibuprofen 600 Mg Tab) 600 mg .ROUTE .STK-MED ONE Stop: 05/31/20 04:51 Loperamide HCl (Loperamide 2 Mg Cap) 4 mg PO ONETIME ONE Stop: 05/30/20 09:46 Last Admin: 05/30/20 09:44 Dose: 4 mg Documented by: Misoprostol (Misoprostol 100 Mcg Tab) 25 mcg VAG Q4H PRN PRN Reason: cervical ripening Misoprostol (Misoprostol 25 Mcg (1/4 Of 100 Mcg) Tab) Confirm Administered Dose 25 mcg .ROUTE .STK-MED ONE Stop: 05/29/20 20:54 Last Admin: 05/29/20 21:33 Dose: Not Given Documented by: Misoprostol (Misoprostol 25 Mcg (1/4 Of 100 Mcg) Tab) 25 mcg VAG Q4H PRN PRN Reason: cervical ripening Last Admin: 05/30/20 05:06 Dose: 25 mcg Documented by: Misoprostol (Misoprostol 25 Mcg (1/4 Of 100 Mcg) Tab) 25 mcg VAG ONETIME ONE Stop: 05/30/20 09:01 Last Admin: 05/30/20 09:30 Dose: Not Given Documented by: Nalbuphine HCl (Nalbuphine 10 Mg/1 Ml Vial) 10 mg IVPUSH Q2H PRN PRN Reason: Pain Ondansetron HCl (Ondansetron 4 Mg/2 Ml Sdv) 4 mg IVPUSH Q4H PRN PRN Reason: Nausea/Vomiting Sodium Chloride (Sodium Chloride 0.9% 10 Ml Syringe) 10 ml FLUSH ASDIRECTED PRN PRN Reason: Keep Vein Open Zolpidem Tartrate (Zolpidem 10 Mg Tab) 10 mg PO ONETIME PRN PRN Reason: Insomnia Last Admin: 05/30/20 00:14 Dose: 10 mg Documented by:
[2020-06-02] MEDS: Levothyroxine 75 MCG Tab PO SCH (11:53)
== END 2020-06-02 12:00 | disposition home or self-care (01) | DRG 560 ==
LOC: JD.OBCHECK 16:39 → JD.OB 16:41 → JD.OBCHECK 20:25 → JD.OB 21:28 → OBSVTOIN 05-31 02:03 → JD.OB 05-31 02:04
PROVIDERS: ADMIT Obstetrics & Gynecology; ATTEND Obstetrics & Gynecology
PROC: 10E0XZZ Delivery of Products of Conception, External Approach (ICD-10-PCS; principal; 2020-05-31)
PROC: 10907ZC Drainage of Amniotic Fluid, Therapeutic from Products of Conception, Via Natural or Artificial Opening (ICD-10-PCS; 2020-05-31)
PROC: 0KQM0ZZ Repair Perineum Muscle, Open Approach (ICD-10-PCS; 2020-05-31)
PROC: 3E0P7VZ Introduction of Hormone into Female Reproductive, Via Natural or Artificial Opening (ICD-10-PCS; 2020-05-31)
PROC: 3E033VJ Introduction of Other Hormone into Peripheral Vein, Percutaneous Approach (ICD-10-PCS; 2020-05-31)
PROC: 3E0R3BZ Introduction of Anesthetic Agent into Spinal Canal, Percutaneous Approach (ICD-10-PCS; 2020-05-31)
PROC: 00HU33Z Insertion of Infusion Device into Spinal Canal, Percutaneous Approach (ICD-10-PCS; 2020-05-31)
DX: O13.3 Gestational [pregnancy-induced] hypertension without significant proteinuria, third trimester (principal); Z37.0 Single live birth; O99.284 Endocrine, nutritional and metabolic diseases complicating childbirth; E03.9 Hypothyroidism, unspecified; O70.1 Second degree perineal laceration during delivery; Z20.822 Contact with and (suspected) exposure to COVID-19; Z88.1 Allergy status to other antibiotic agents; Z88.8 Allergy status to other drugs, medicaments and biological substances; Z79.890 Hormone replacement therapy; Z79.899 Other long term (current) drug therapy; Z3A.37 37 weeks gestation of pregnancy
CPT/HCPCS: 01967; 36415; 51702; 59025; 59409; 82565; 82570; 84156; 84450; 84460; 85025; 86592; 86850; 86900; 86901; A9270-GY; J1200; J2590; J3010; J7120; U0002

== ENCOUNTER 2022-04-28 18:51 | Emergency (ER) | payer BC, OTHER ==
[2022-04-28] MEDS ORDERED: Sodium Chloride 0.9% 10 ML Syringe FLUSH PRN (19:30)
[2022-04-28] MEDS ORDERED: Ondansetron 4 MG/2 ML SDV IVPUSH ONE (19:48)
[2022-04-28] MEDS ORDERED: Sodium Chloride 0.9% 1,000 ML IV STA (19:48)
[2022-04-28 20:17] LABS: ESTIMATED GFR 122 mL/min (>60)
[2022-04-28] MEDS ORDERED: Ketorolac 30 MG/ML SDV IVPUSH ONE (21:28)
[2022-04-28] MEDS ORDERED: Alum Hydrox/Mag Hydrox/Simeth 30 ML, Lidocaine 2% 15 ML PO ONE ×2 (21:28)
== END 2022-04-28 22:30 | disposition home or self-care (01) ==
LOC: JD.ED 18:51
DX: R10.10 Upper abdominal pain, unspecified (principal); E66.9 Obesity, unspecified; Z68.37 Body mass index [BMI] 37.0-37.9, adult; Z88.8 Allergy status to other drugs, medicaments and biological substances
CPT/HCPCS: 36415; 76705; 80053; 81001; 83690; 84703; 85025; 86140; 96361; 96374; 96375; 99284; A9270; J1885; J2405; J3490; J7030

== ENCOUNTER 2022-12-07 19:26 | Emergency (ER) | payer OTHER ==
[2022-12-07] MEDS ORDERED: Famotidine 20 MG/2 ML SDV IVPUSH ONE (21:03)
[2022-12-07] MEDS ORDERED: Sodium Chloride 0.9% 1,000 ML IV ONE (21:03)
[2022-12-07] MEDS ORDERED: diphenhydrAMINE 50 MG/ML SDV IVPUSH ONE (21:03)
[2022-12-07] MEDS ORDERED: Sodium Chloride 0.9% 10 ML Syringe FLUSH PRN (21:06)
[2022-12-07 21:29] LABS: BASOPHILS PERCENT AUTO 0.2 % (0.0-1.0); EOSINOPHILS ABSOLUTE AUTO 0.1 K/mm3 (0.0-0.4); EOSINOPHILS PERCENT AUTO 0.7 % (0.0-6.0); HEMATOCRIT 36.7 % (37.0-47.0); HEMOGLOBIN 12.6 gm/dl (12.0-16.0); IMMATURE GRAN ABSOLUTE AUTO 0.14 K/mm3 (0.00-0.05); IMMATURE GRAN PERCENT AUTO 1.4 % (0.0-0.4); LYMPHOCYTES ABSOLUTE AUTO 6.3 K/mm3 (1.0-4.8); LYMPHOCYTES PERCENT AUTO 60.6 % (24.0-44.0); MEAN CORPUSCULAR HEMOGLOBIN 29.9 pg (28.0-32.0); MEAN CORPUSCULAR HGB CONC 34.3 g/dl (32.0-36.0); MEAN CORPUSCULAR VOLUME 87.2 fl (83.0-99.0); MONOCYTES ABSOLUTE AUTO 0.5 K/mm3 (0.0-0.8); MONOCYTES PERCENT AUTO 4.7 % (0.0-8.0); NEUTROPHILS ABSOLUTE AUTO 3.4 K/mm3 (1.8-7.7); NEUTROPHILS PERCENT AUTO 32.4 % (41.0-71.0); PLATELET COUNT,PLT 222 K/mm3 (150-400); RED BLOOD CELL COUNT 4.21 M/mm3 (4.10-5.30); WHITE BLOOD CELL COUNT,WBC 10.36 K/mm3 (3.9-11.3)
[2022-12-07 21:51] LABS: A/G RATIO 0.9 (1-2); ALBUMIN 3.2 g/dl (3.4-5.0); ANION GAP 8.2 (5-15); BILIRUBIN TOTAL 0.3 mg/dL (0.2-1.0); BUN/CREATININE RATIO 9.1 (14-18); CALCIUM 8.9 mg/dL (8.5-10.1); CREATININE 1.1 mg/dL (0.55-1.02); EST CRCL DRUG DOSING (CG) 71.92 mL/min; MAGNESIUM 1.8 mg/dL (1.8-2.4); POTASSIUM,K 3.2 mEq/L (3.5-5.1); PROTEIN TOTAL,TP 6.7 g/dl (6.4-8.2)
[2022-12-07 21:54] LABS: SLIDE REVIEW ABNORMAL SMEAR
[2022-12-07] MEDS ORDERED: Potassium Chloride 20 MEQ Tab.ER PO ONE (22:01)
== END 2022-12-07 23:32 | disposition home or self-care (01) ==
LOC: JD.ED 19:26
DX: R21 Rash and other nonspecific skin eruption (principal); E03.9 Hypothyroidism, unspecified; E66.9 Obesity, unspecified; Z86.16 Personal history of COVID-19; Z79.899 Other long term (current) drug therapy; Z88.1 Allergy status to other antibiotic agents; Z88.8 Allergy status to other drugs, medicaments and biological substances; Z68.37 Body mass index [BMI] 37.0-37.9, adult
CPT/HCPCS: 36415; 80053; 83735; 85025; 96361; 96374; 96375; 99283; A9270; J1200; J3490; J7030; 99284

== ENCOUNTER 2023-12-04 02:22 | Inpatient (IN) | payer OTHER ==
[~2023-12-04 02:22] MED LIST: Ropivacaine 0.2% PF 2 MG/ML 20 ML SDV ONE
[2023-12-04] MEDS ORDERED: Calcium Carbonate 500 MG Tab.Chew PO PRN (15:16)
[2023-12-04] MEDS ORDERED: Lidocaine 1% 50 ML MDV INJECT PRN (15:16)
[2023-12-04] MEDS ORDERED: Ondansetron 4 MG/2 ML SDV IVPUSH PRN (15:16)
[2023-12-04 15:47] LABS: BASOPHILS ABSOLUTE AUTO 0.1 K/mm3 (0.0-0.2); BASOPHILS PERCENT AUTO 0.5 % (0.0-1.0); EOSINOPHILS ABSOLUTE AUTO 0.1 K/mm3 (0.0-0.4); EOSINOPHILS PERCENT AUTO 1.3 % (0.0-6.0); HEMATOCRIT 32.6 % (37.0-47.0); HEMOGLOBIN 11.1 gm/dl (12.0-16.0); IMMATURE GRAN ABSOLUTE AUTO 0.05 K/mm3 (0.00-0.05); IMMATURE GRAN PERCENT AUTO 0.5 % (0.0-0.4); LYMPHOCYTES ABSOLUTE AUTO 3.3 K/mm3 (1.0-4.8); LYMPHOCYTES PERCENT AUTO 29.4 % (24.0-44.0); MEAN CORPUSCULAR HEMOGLOBIN 29.4 pg (28.0-32.0); MEAN CORPUSCULAR VOLUME 86.2 fl (83.0-99.0); MEAN PLATELET VOLUME 9.6 fl (9.4-12.3); MONOCYTES ABSOLUTE AUTO 0.5 K/mm3 (0.0-0.8); MONOCYTES PERCENT AUTO 4.6 % (0.0-8.0); NEUTROPHILS ABSOLUTE AUTO 7.1 K/mm3 (1.8-7.7); NEUTROPHILS PERCENT AUTO 63.7 % (41.0-71.0); PLATELET COUNT,PLT 286 K/mm3 (150-400); RED BLOOD CELL COUNT 3.78 M/mm3 (4.10-5.30); WHITE BLOOD CELL COUNT,WBC 11.08 K/mm3 (3.9-11.3)
[2023-12-04] MEDS: Misoprostol 25 MCG (1/4 of 100 MCG) Tab VAG ONE (15:59)
[2023-12-04 16:25] LABS: CREATININE 0.7 mg/dL (0.55-1.02); EST CRCL DRUG DOSING (CG) 112.01 mL/min; URIC ACID 5.2 mg/dL (2.6-6.0)
[2023-12-04 16:35] LABS: CREATININE,URINE RAND 115.8 mg/dL (30.0-125.0); PROTEIN CREATININE RATIO,URINE 138.2 mg/g (0-149)
[2023-12-04] MEDS: Lactated Ringers 1,000 ML IV SCH (20:54)
[2023-12-04] MEDS ORDERED: ePHEDrine 50 MG/ML SDV IVPUSH PRN (21:16)
[2023-12-04] MEDS: Bupivacaine/fentaNYL/NS 100 ML Bag EPIDUR PRN (21:35)
[2023-12-04] MEDS: fentaNYL 100 MCG/2 ML SDV EPIDUR PRN (21:37)
[2023-12-04] MEDS: diphenhydrAMINE 50 MG/ML SDV IVPUSH PRN (23:11)
[2023-12-05] MEDS: Sodium Chloride 0.9% 10 ML Syringe FLUSH SCH (01:14)
[2023-12-05] MEDS: Misoprostol 25 MCG (1/4 of 100 MCG) Tab VAG ONE (01:14)
[2023-12-05] MEDS: Oxytocin/0.9 % Sodium Chloride 30 UNIT/500 ML BAG IV SCH (02:05)
[2023-12-05] MEDS ORDERED: Docusate Sodium 100 MG Cap PO PRN (02:46)
[2023-12-05] MEDS: Benzocaine/Menthol 20%-0.5% Spray 78 GM Cannister TOP PRN (03:05)
[2023-12-05] MEDS: Witch Hazel Medicated Pads 40/Jar TOP PRN (03:05)
[2023-12-05] MEDS: Ibuprofen 600 MG Tab PO SCH ×2 (04:13→10:53)
[2023-12-05] MEDS: Acetaminophen 325 MG Tab PO PRN (07:23)
[2023-12-05] MEDS: Levothyroxine 75 MCG Tab PO SCH (10:57)
[2023-12-05] MEDS: Sertraline 50 MG Tab PO SCH (10:57)
== END 2023-12-06 11:41 | disposition home or self-care (01) | DRG 807 ==
LOC: JD.OB 02:22 → INTOOBSV 15:16 → OBSVTOIN 15:16 → JD.OB 12-05 02:03 → OBSVTOIN 12-05 02:22
PROVIDERS: ADMIT Obstetrics & Gynecology; ATTEND Obstetrics & Gynecology
PROC: 10E0XZZ Delivery of Products of Conception, External Approach (ICD-10-PCS; principal; 2023-12-05)
PROC: 0KQM0ZZ Repair Perineum Muscle, Open Approach (ICD-10-PCS; 2023-12-05)
PROC: 10907ZC Drainage of Amniotic Fluid, Therapeutic from Products of Conception, Via Natural or Artificial Opening (ICD-10-PCS; 2023-12-05)
PROC: 3E0P7VZ Introduction of Hormone into Female Reproductive, Via Natural or Artificial Opening (ICD-10-PCS; 2023-12-05)
PROC: 3E0R3BZ Introduction of Anesthetic Agent into Spinal Canal, Percutaneous Approach (ICD-10-PCS; 2023-12-05)
PROC: 00HU33Z Insertion of Infusion Device into Spinal Canal, Percutaneous Approach (ICD-10-PCS; 2023-12-05)
DX: O13.4 Gestational [pregnancy-induced] hypertension without significant proteinuria, complicating childbirth (principal); Z37.0 Single live birth; O48.0 Post-term pregnancy; Z3A.40 40 weeks gestation of pregnancy; O70.1 Second degree perineal laceration during delivery; O77.0 Labor and delivery complicated by meconium in amniotic fluid
CPT/HCPCS: 36415; 51702; 59025; 59409; 82565; 82570; 83615; 84156; 84450; 84460; 84520; 84550; 85025; 86592; 86850; 86900; 86901; A9270-GY; J1200; J3010; J3490; J7120; J7999